=== PATIENT | female | born 2000 | race American Indian/Alaskan Native ===

== ENCOUNTER 2024-09-12 08:35 | Emergency (ER) | payer MEDICAID, SELFPAY ==
[2024-09-12 09:51] VITALS: BP 122/76; PULSE 64; RESP 17; TEMP 37.2; O2SAT 100; BMI 34.5
--- NOTE | 2024-09-12 10:45 | EDRME_ITS ---
Rapid Medical Screening Exam REPLACED BY [facility] Arrival date/time: 09/12/24 08:35 Chief Complaint: Urogenital-Female Vital signs: Vital Signs Temperature 98.9 F 09/12/24 09:51 Pulse Rate 64 09/12/24 09:51 Respiratory Rate 17 09/12/24 09:51 Blood Pressure 122/76 09/12/24 09:51 Pulse Oximetry (%) 100 09/12/24 09:51 Oxygen Delivery Method Room Air 09/12/24 09:51 RME Narrative: 25-year-old patient presents emergency department with complaint of abdominal cramping and vaginal bleeding for the past 3 days. She is unsure of how far along she is but she is G2, P1. Patient is unsure of her blood type.
--- NOTE | 2024-09-12 10:48 | XR_ITS ---
Examination: Complete OB ultrasound, less than 14 weeks, transabdominal Date and time of exam: September 12 2024-0 3 hours INDICATIONS: Vaginal bleeding beginning 3 days ago with pelvic cramping today Technique: Obstetrical ultrasound images less than 14 weeks performed via transabdominal imaging Findings: A normal shaped single intrauterine gestation is present in the uterus. pole 1.6 cm corresponds to 8 weeks 0 day gestational age No cardiac motion Subchorionic hemorrhage 3.5 x 1.8 x 2.7 cm Ultrasonographic survey of visible structures unremarkable. Amniotic fluid volume appears appropriate for this estimated gestational age. Right ovary 3.4 x 2.3 x 2.9 cm arterial flow Left artery 3.7 x 2.7 x 2.9 cm arterial flow No fluid in the cul-de-sac IMPRESSION: Findings most consistent with demise, no cardiac motion Recommend short-term follow-up transvaginal pelvic sonography.
[2024-09-12 11:12] LABS: Basophils % (Auto) 1 % (0-2.5); Eosinophils % (Auto) 0 % (0-10); Hemoglobin 14.5 g/dL (12.0-16.0); Immature Granulocytes % (Auto) 0 % (0-0); Immature Granulocytes Auto 0.01 Thou/mm3 (0.00-0.00); Lymphocytes # (Auto) 1.3 Thou/mm3 (1.0-4.8); Lymphocytes % (Auto) 20 % (10-50); Mean Corpuscular HGB Conc 34.5 g/dl (31.0-37.0); Mean Corpuscular Hemoglobin 27.3 pg (25.0-35.0); Mean Corpuscular Volume 79 fL (80-100); Monocytes # (Auto) 0.3 Thou/mm3 (0.0-0.8); Monocytes % (Auto) 5 % (0-12); Neutrophils # (Auto) 4.7 Thou/mm3 (1.8-7.7); Neutrophils % (Auto) 74 % (37-80); Nucleated Red Blood Cell % 0 /100 WBC (0); Platelet Count 357 Thou/mm3 (140-440); RDW Standard Deviation 35.9 fL (36.4-46.3); Red Blood Count 5.32 Miln/mm3 (4.00-5.20); White Blood Count 6.3 Thou/mm3 (3.6-11.0)
[2024-09-12 11:43] LABS: Alanine Aminotransferase 33 U/L (10-49); Albumin, Serum 5.3 gm/dL (3.5-5.0); Albumin/Globulin Ratio 1.6 (1.2-2.2); Alkaline Phosphatase 83 U/L (46-116); Anion Gap 9 (7-16); Aspartate Amino Transferase 16 U/L (0-34); BUN/Creatinine Ratio 12 Ratio (12-20); Bilirubin,Total 0.6 mg/dL (0.3-1.2); Blood Urea Nitrogen 7 mg/dL (9-23); Calcium 10.2 mg/dL (8.3-10.6); Calcium (Corrected) 10.2 mg/dL (8.5-10.1); Carbon Dioxide 23.1 mMol/L (20.0-31.0); Chloride 104 mMol/L (98-107); Creatinine (Component) 0.6 mg/dL (0.6-1.3); Estimated Creatinine Clearance 141.2 mL/min (>60); Globulin 3.3 gm/dL (2.3-3.5); Glucose 104 mg/dL (74-106); Lipase 23 U/L (12-53); Osmolality,Calculated 269 (275-295); Potassium 3.7 mMol/L (3.4-5.1); Sodium 136 mMol/L (136-145); Total Protein 8.6 gm/dL (5.7-8.2); eGFR > 60 See Note
[2024-09-12 12:11] LABS: Beta HCG,Quantitative 44250 mIU/mL (<5.0)
--- NOTE | 2024-09-12 14:48 | EDNOTE_ITS ---
<Statement entered by Lillie Rosado MD - 09/13/24 06:45> As co-signing physician, I was present and available for consult prn. I concur with the plan and care as documented by the midlevel provider. ED Female Urogenital RME/HPI General Chief complaint: Urogenital-Female Stated complaint: VAGINAL BLEEDING x 3 DAYS, + PREG Time Seen by Provider: 09/12/24 14:32 Arrival date/time: 09/12/24 08:35 RME / HPI RME / HPI Narrative: 25-year-old patient presents emergency department with complaint of abdominal cramping and vaginal bleeding for the past 3 days. She is unsure of how far along she is but she is G2, P1. Patient is unsure of her blood type. Related Data Previous Rx's ?Medication ?Instructions ?Recorded diazepam 10 mg tablet 10 mg PO BID PRN muscle spasm #6 04/29/23 tabs ibuprofen 600 mg tablet 600 mg PO Q8H PRN pain #14 tabs 04/29/23 Allergies Allergy/AdvReac Type Severity Reaction Status Date / Time No Known Allergies Allergy Verified 09/12/24 08:38 Review of Systems Review of Systems Systems Reviewed: All systems reviewed, normal except as documented Constitutional Constitutional: Reports system reviewed and no additional complaints, except as documented ENT Ears, Nose, Mouth, and Throat: Reports system reviewed and no additional complaints, except as documented Cardiovascular Cardiovascular: Reports system reviewed and no additional complaints, except as documented Respiratory Respiratory: Reports system reviewed and no additional complaints, except as documented Gastrointestinal Gastrointestinal: Reports system reviewed and no additional complaints, except as documented Genitourinary Genitourinary: Reports system reviewed and no additional complaints, except as documented Musculoskeletal Musculoskeletal: Reports system reviewed and no additional complaints, except as documented Neurologic Neurologic: Reports system reviewed and no additional complaints, except as documented ED Exam General General appearance: Present alert and in no apparent distress Head Head exam: Present atraumatic and normocephalic Eye Eye exam: Present normal appearance and PERRL ENT ENT exam: Present normal exam and normal oropharynx Chest Chest inspection: Present normal inspection and symmetric chest wall rise Respiratory Respiratory exam: Present normal lung sounds bilaterally Cardiovascular Cardiovascular exam: Present regular rate and normal rhythm Abdominal Exam Abdominal exam: Present soft and tenderness Extremities Exam Extremities exam: Present normal inspection and full ROM Back Exam Back exam: Present normal inspection and full ROM Neurological Exam Neurological exam: Present alert and oriented X3 Psychiatric Psychiatric exam: Present normal affect and normal mood Course Quality Measures none Orders Category Date Time Status US OB <= 14 weeks fetus Stat Exams 09/12/24 10:48 Completed ABO/RH Type Stat Lab 09/12/24 10:53 Completed Beta HCG,Quantitative Stat Lab 09/12/24 10:53 Completed CBC Stat Lab 09/12/24 10:53 Completed CMP [Comprehensive Metabolic Panel] Stat Lab 09/12/24 10:53 Completed Lipase Stat Lab 09/12/24 10:53 Completed Vital Signs Vital signs: Vital Signs Temperature 98.9 F 09/12/24 09:51 Pulse Rate 64 09/12/24 09:51 Respiratory Rate 17 09/12/24 09:51 Blood Pressure 122/76 09/12/24 09:51 Pulse Oximetry (%) 100 09/12/24 09:51 Oxygen Delivery Method Room Air 09/12/24 09:51 Urogenital - Female MDM Narrative MDM Narrative:: 24-year-old patient presents emergency department with complaint of abdominal cramping and vaginal bleeding that started 3 days ago she is G2, P1 ultrasound indicates demise. Patient is stable to be DC'd home. She remained stable and not toxic appearing throughout ED stay. Encouraged to follow-up with [facility] for further care. Patient data External records reviewed:: None Clinical information provided by:: patient Social determinants that could affect healthcare access:: none Patient has the following chronic illnesses:: DM, Hypothyroidism How is presenting disease/condition affected by chronic disease/condition?: uneffected by Evaluation data The following diagnostics were reviewed and interpreted by me:: lab results and radiology exam(s) Lab and/or radiology exams considered but not ordered:: both considered and ordered Interpretation Summary: demise per US Medications / Prescriptions Medications or Prescriptions considered but not ordered:: na Medication administrations:: na Consultations Consultation(s) initiated? (list below): No Diagnosis Urogenital Female Differential Diagnosis: urinary tract infection, bacterial vaginosis, trichomoniasis, ruptured ovarian cyst and dysmenorrhea Most likely diagnosis given after review of the tests above:: Admission Indicated Admission indicated?: not indicated Admission Request Was there a request for admission?: No Disposition Plan Disposition Plan: Discharge Discharge Attestation Discharge Attestation: The patient and all family members were given an opportunity to ask questions and understood the discharge instructions. Discharge instructions specifically effects, indications for sooner follow up or return to the emergency department, and the expected course of current diagnosis. Patient condition: Stable Discharge Plan Plan Patient Disposition: HOME (Self Care) Prescriptions/Referrals Prescriptions/Med Rec: No Action diazepam 10 mg tablet 10 mg PO BID PRN (Reason: muscle spasm) Qty: 6 0RF ibuprofen 600 mg tablet 600 mg PO Q8H PRN (Reason: pain) Qty: 14 0RF Referrals: Neville Retana PA-C [Primary Care Provider] - In 1 week Problem List Clinical Impression: in first trimester Patient/Caregiver Discharge Instructions Print Language: Haitian Stand Alone Forms: [employer] Award Info., Patient Portal Info Letter
[2024-09-12 14:56] VITALS: BP 126/82; PULSE 58; RESP 16; TEMP 36.8; O2SAT 99
== END 2024-09-12 15:27 | disposition home or self-care (01) ==
PROVIDERS: Physician Assistant; Emergency Provider Emergency Medicine; PCP Physician Assistant
DX: O03.9 Complete or unspecified spontaneous abortion without complication (principal)
CPT/HCPCS: 36415; 76801; 80053; 83690; 84702; 85025; 86900; 86901; 99284

== ENCOUNTER 2024-09-19 19:23 | Emergency (ER) | payer MEDICAID, SELFPAY ==
[2024-09-19 19:24] VITALS: BP 112/72; PULSE 66; RESP 18; TEMP 36.8; O2SAT 100
[2024-09-19 19:30] VITALS: PULSE 65; RESP 18; O2SAT 98; BMI 33.8
--- NOTE | 2024-09-19 19:43 | PD.EDVAGBL ---
ED OB Contraction Preg RMI/HPI General Chief complaint: Vaginal Bleeding Stated complaint: VAGINAL BLEED Time Seen by Provider: 09/19/24 19:39 Source: patient, RN notes reviewed and old records reviewed Arrival date/time: 09/19/24 19:23 Mode of arrival: ambulatory Limitations: no limitations RME / HPI RME / HPI Narrative: 24yof approx 8 weeks gestation presents to ED via EMS for vaginal bleeding x 1 week. Patient reports vaginal bleeding and pelvic cramping significantly worsened this evening. Patient was evaluated in ED 09/12/2024 for same complaint, ultrasound showed 8-week IUP with no cardiac activity c/w demise. Patient has not followed up with OB since prior visit. No fever, nausea/vomiting, back pain or urinary symptoms reported. 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 Related Data Previous Rx's ?Medication ?Instructions ?Recorded diazepam 10 mg tablet 10 mg PO BID PRN muscle spasm #6 04/29/23 tabs ibuprofen 600 mg tablet 600 mg PO Q8H PRN pain #14 tabs 04/29/23 acetaminophen 500 mg tablet 1,000 mg (2 x 500 mg) PO Q6H PRN 09/19/24 (Tylenol Extra Strength) pain #30 tabs ibuprofen 600 mg tablet 600 mg PO Q6H PRN pain #30 tabs 09/19/24 methocarbamol 500 mg tablet 1,000 mg (2 x 500 mg) PO Q8H PRN 09/19/24 pain #30 tabs Allergies Allergy/AdvReac Type Severity Reaction Status Date / Time No Known Allergies Allergy Verified 09/12/24 08:38 Review of Systems Review of Systems Systems Reviewed: All systems reviewed, normal except as documented Constitutional Constitutional: Denies chills and Denies fever(s) Gastrointestinal Gastrointestinal: Denies nausea and Denies vomiting Genitourinary Genitourinary: Reports abnormal vaginal bleeding, Denies dysuria and Reports pelvic pain Past Medical History Past Medical History GASTROINTESTINAL: Positive Obesity Social History SMOKING STATUS: Never smoker SUBSTANCE USE: marijuana ALCOHOL: Never ED Exam General Limitations: Present no limitations General appearance: Present alert, in no apparent distress and other (Appears uncomfortable 2/2 pain) Head Head exam: Present atraumatic and normocephalic Eye Eye exam: Present normal appearance, PERRL and EOMI ENT ENT exam: Present normal exam and mucous membranes moist Neck Neck exam: Present normal inspection and full ROM Chest Chest inspection: Present normal inspection and symmetric chest wall rise Respiratory Respiratory exam: Present normal lung sounds bilaterally; Absent respiratory distress Cardiovascular Cardiovascular exam: Present regular rate and normal rhythm Abdominal Exam Abdominal exam: Present soft; Absent distention, tenderness, guarding or rebound Extremities Exam Extremities exam: Present normal inspection and full ROM Neurological Exam Neurological exam: Present alert and oriented X3 Psychiatric Psychiatric exam: Present normal affect and normal mood Skin Skin exam: Present warm, dry, intact and normal color Course Quality Measures none Orders Category Date Time Status US OB transvaginal Stat Exams 09/19/24 19:52 Completed Beta HCG,Quantitative Stat Lab 09/19/24 20:48 Completed CBC Stat Lab 09/19/24 20:48 Completed CYCLObenzaPRINE [Flexeril] Med 09/19/24 22:40 Discontinued 5 mg PO X1 ONE HYDROcodone*/APAP 7.5/325 [[place] 7.5/325] Med 09/19/24 19:46 Discontinued 1 tab PO X1 ONE Ibuprofen Tab [Motrin Tab] Med 09/19/24 19:56 Discontinued 600 mg PO X1 ONE Vital Signs Vital signs: Vital Signs Temperature 98.2 F 09/19/24 19:24 Pulse Rate 66 09/19/24 19:24 Respiratory Rate 18 09/19/24 19:24 Blood Pressure 112/72 09/19/24 19:24 Pulse Oximetry (%) 100 09/19/24 19:24 Oxygen Delivery Method Room Air 09/19/24 19:24 Vaginal Bleeding MDM Narrative MDM Narrative: 24yof approx 8 weeks gestation presents to ED via EMS for vaginal bleeding x 1 week. Patient reports vaginal bleeding and pelvic cramping significantly worsened this evening. Patient was evaluated in ED 09/12/2024 for same complaint, ultrasound showed 8-week IUP with no cardiac activity c/w demise. Patient has not followed up with OB since prior visit. No fever, nausea/vomiting, back pain or urinary symptoms reported. 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 Patient updated on labs and imaging. Ultrasound and decreased hCG consistent with demise. Patient is hemodynamically stable. Encouraged OB follow-up within 1 week. Motrin/Tylenol prn pain. Stable for discharge, RTED precautions given Patient data External records reviewed:: [facility] previous records (ED visit 09/12/2024 for vaginal bleeding/ demise) Clinical information provided by:: patient Social determinants that could affect healthcare access:: other (specify) (Poor access to healthcare) Patient has the following chronic illnesses:: Obesity How is presenting disease/condition affected by chronic disease/condition?: uneffected by Evaluation data The following diagnostics were reviewed and interpreted by me:: lab results and radiology exam(s) Lab and/or radiology exams considered but not ordered:: UA Interpretation Summary: hgb 13.3 stable hCG quant [id number] (decreased from 44K on 09/12 visit) OB ultrasound: IUP, no cardiac activity per my read Medications / Prescriptions Medications or Prescriptions considered but not ordered:: No antibiotics recommended at this time Medication administrations:: Medication Administration History Discontinued Medications Hydrocodone Bitart/Acetaminophen (Hydrocodone/Apap 7.5/325 Tablet) 1 tab PO X1 ONE Stop: 09/19/24 19:47 Last Admin: 09/19/24 20:02 Dose: 1 tab Documented By: AMERICA Cyclobenzaprine HCl (Cyclobenzaprine 5 Mg Tablet) 5 mg PO X1 ONE Stop: 09/19/24 22:41 Last Admin: 09/19/24 22:42 Dose: 5 mg Documented By: AMERICA Ibuprofen (Ibuprofen Tab 600 Mg Tablet) 600 mg PO X1 ONE Stop: 09/19/24 19:57 Last Admin: 09/19/24 20:02 Dose: 600 mg Documented By: AMERICA Above medications administered in ED Consultations Consultation(s) initiated? (list below): No Diagnosis Vaginal Bleeding Differential Diagnosis: missed , threatened , ectopic without intrauterine and vaginal bleeding Most likely diagnosis given after review of the tests above:: Missed Admission Indicated Admission indicated?: not indicated Admission Request Was there a request for admission?: No Disposition Plan Disposition Plan: Discharge Discharge Attestation Discharge Attestation: The patient and all family members were given an opportunity to ask questions and understood the discharge instructions. Discharge instructions specifically effects, indications for sooner follow up or return to the emergency department, and the expected course of current diagnosis. Patient condition: Stable Discharge Plan Plan Patient Disposition: HOME (Self Care) Patient condition on transfer: Stable Prescriptions/Referrals Prescriptions/Med Rec: New ibuprofen 600 mg tablet 600 mg PO Q6H PRN (Reason: pain) Qty: 30 0RF acetaminophen [Tylenol Extra Strength] 500 mg tablet 1,000 mg PO Q6H PRN (Reason: pain) Qty: 30 0RF methocarbamol 500 mg tablet 1,000 mg PO Q8H PRN (Reason: pain) Qty: 30 0RF No Action diazepam 10 mg tablet 10 mg PO BID PRN (Reason: muscle spasm) Qty: 6 0RF ibuprofen 600 mg tablet 600 mg PO Q8H PRN (Reason: pain) Qty: 14 0RF Referrals: No Primary/Family,Physician [Primary Care Provider] - In 1 week Karine Carter MD [Physician] - In 1 week (Call to schedule an appointment for a visit) Problem List Clinical Impression: Incomplete miscarriage Patient/Caregiver Discharge Instructions Education Materials: ED Miscarriage, Incomplete Additional Instructions: Please follow-up with your OB within the following week. Print Language: Persian Stand Alone Forms: [employer] Award Info., Patient Portal Info Letter PA/HUMAN RESOURCES HR REPRESENTATIVE Supervising Physician PA/HUMAN RESOURCES HR REPRESENTATIVE Supervising Physician: Elliott
--- NOTE | 2024-09-19 19:52 | XR_ITS ---
Examination: OB Transvaginal ultrasound of the pelvis, complete Technique: Transvaginal sonographic images pelvis performed using morris scale imaging Exam date and time: September 19, 2024 2009 hrs. Indications: Vaginal bleeding and pelvic cramping today Findings: Uterus 13.2 x 6.0 x 6.2 cm pole sac 1.7 cm corresponding to 8 weeks 1 day gestational age No cardiac activity Right ovary 2.9 x 2.2 x 2.5 cm arterial flow Left ovary 2.6 x 2.1 x 1.9 cm arterial flow Impression: Intrauterine gestation corresponding to 8 weeks 1 day gestational age No cardiac motion consistent with demise and spontaneous in progress Consider short-term follow-up transvaginal pelvic sonography as clinically warranted
[2024-09-19] MEDS: HYDROcodone/APAP 7.5/325 TABLET 1 TAB PO (20:02)
[2024-09-19] MEDS: IBUPROFEN TAB 600 MG TABLET PO (20:02)
[2024-09-19 21:05] LABS: Basophils % (Auto) 0 % (0-2.5); Eosinophils % (Auto) 0 % (0-10); Hematocrit 37.3 % (36.0-46.0); Hemoglobin 13.3 g/dL (12.0-16.0); Immature Granulocytes % (Auto) 0 % (0-0); Immature Granulocytes Auto 0.03 Thou/mm3 (0.00-0.00); Lymphocytes # (Auto) 1.3 Thou/mm3 (1.0-4.8); Lymphocytes % (Auto) 13 % (10-50); Mean Corpuscular HGB Conc 35.7 g/dl (31.0-37.0); Mean Corpuscular Hemoglobin 27.4 pg (25.0-35.0); Mean Corpuscular Volume 77 fL (80-100); Monocytes # (Auto) 0.5 Thou/mm3 (0.0-0.8); Monocytes % (Auto) 4 % (0-12); Neutrophils # (Auto) 8.5 Thou/mm3 (1.8-7.7); Neutrophils % (Auto) 82 % (37-80); Nucleated Red Blood Cell % 0 /100 WBC (0); Platelet Count 278 Thou/mm3 (140-440); RDW Standard Deviation 34.9 fL (36.4-46.3); Red Blood Count 4.85 Miln/mm3 (4.00-5.20); White Blood Count 10.4 Thou/mm3 (3.6-11.0)
[2024-09-19 22:10] LABS: Beta HCG,Quantitative 13895 mIU/mL (<5.0)
[2024-09-19] MEDS: CYCLObenzaPRINE 5 MG TABLET PO (22:42)
[2024-09-19 23:09] VITALS: RESP 18
== END 2024-09-19 23:09 | disposition home or self-care (01) ==
PROVIDERS: Physician Assistant; Emergency Provider Emergency Medicine
DX: O03.4 Incomplete spontaneous abortion without complication (principal)
CPT/HCPCS: 36415; 76817; 84702; 85025; 99284; A9270